=== PATIENT | male | born 1995 | race Caucasian/White ===

== ENCOUNTER 2025-08-31 23:45 | Emergency (ER) | payer SELFPAY ==
[~2025-08-31] VITALS: Ht 175.3 cm; Wt 78.0 kg
[2025-08-31 23:51] VITALS: BP 135/88; PULSE 98; RESP 18; O2SAT 98
[2025-09-01] MEDS: IBUPROFEN 600MG TABLET PO ONE (00:40)
[2025-09-01] MEDS: LIDOCAINE HCL 1% 20ML VIAL INFIL ONE (00:40)
== END 2025-09-01 00:42 | disposition home or self-care (01) ==
LOC: ER 23:45
DX: S01.81XA Laceration without foreign body of other part of head, initial encounter (principal); F10.129 Alcohol abuse with intoxication, unspecified; W19.XXXA Unspecified fall, initial encounter; Y93.89 Activity, other specified; Y92.89 Other specified places as the place of occurrence of the external cause; Y99.8 Other external cause status
CPT/HCPCS: 99283; 12011; J2003